=== PATIENT | male | born 1990 | race Asian ===

== ENCOUNTER 2021-01-07 12:06 | Outpatient (CLI) | payer SELFPAY | END 2021-01-07 12:07 | disposition EMS.NT | LOC: EMS 12:06 | DX: R07.9 Chest pain, unspecified (principal) ==

== ENCOUNTER 2022-01-10 08:00 | Outpatient (CLI) | payer OTHER | END 2022-01-10 23:59 | disposition home or self-care (01) | LOC: LAB.S 08:00 | PROVIDERS: ATTEND Physician Assistant | DX: J06.9 Acute upper respiratory infection, unspecified (principal); Z20.822 Contact with and (suspected) exposure to COVID-19 ==

== ENCOUNTER 2023-07-30 08:00 | Outpatient (CLI) | payer OTHER ==
--- NOTE | 2023-07-31 17:35 | XRAY Report ---
PROCEDURE: Shoulder 3 View RT INDICATIONS: RIGHT SHOULDER CONTUSION TECHNIQUE: 3 views of the shoulder were acquired. COMPARISON: None. FINDINGS: Bones: No fractures or dislocations. No suspicious bony lesions. Visualized ribs appear intact. Soft tissues: No suspicious soft tissue calcifications. The visualized lungs are within normal limi ts. IMPRESSION: No acute bony abnormality. Reviewed by: Rani Shukla MD on 07/31/2023 5:33 PM PST Approved by: Rani Shukla MD on 07/31/2023 5:33 PM PST Station ID: [id number]
== END 2023-07-30 23:59 | disposition home or self-care (01) ==
LOC: DI.S 08:00
PROVIDERS: ATTEND Physician Assistant
DX: S40.021A Contusion of right upper arm, initial encounter (principal)